=== PATIENT | male | born 1965 | race Caucasian/White ===

== ENCOUNTER 2017-04-24 09:01 | Emergency (ER) | payer SELFPAY ==
[~2017-04-24] VITALS: Ht 177.8 cm; Wt 77.0 kg
[2017-04-24 09:01] VITALS: BP 95/57; PULSE 214; RESP 16; TEMP 98.2; O2SAT 98
[2017-04-24 09:08] VITALS: O2SAT 97
[2017-04-24] MEDS ORDERED: DILTIAZEM HCL 25 MG/5 ML VIAL IV PUSH PRN (09:15)
[2017-04-24] MEDS ORDERED: SODIUM CHLOR 0.9% 1000 ML INJ 1,000 ML IV ONE (09:15)
[2017-04-24] MEDS ORDERED: SODIUM CHLORIDE 0.9% FLUSH 10 ML FLUSH IVF PRN (09:15)
--- NOTE | 2017-04-24 09:23 | PD ---
HPI Chief Complaint: Cardiac Complaint Time Seen by Provider: 09:05 Travel History International Travel<30 days: No Contact w/Intl Traveler<30days: No Traveled to known affect area: No History of Present Illness HPI 52-year-old male presents to the emergency department by EMS for chest pain and tachycardia. He speaks almost exclusively Occitan so we had nurse Jam communicate with the patient. From what I can understand, his chest pain started about 1 hour ago and is located in the center of his chest rated 8/10 without radiation. He has some accompanying shortness of breath with increased pain with breathing. EMS attempted vagal maneuvers, gave him 6 and 12 mg of adenosine, and also 20 mg Cardizem without change. This was his first episode. He denies any medical history. He is from [facility]. [facility] Past Medical History Medical History: Denies Significant Hx Past Surgical History Surgical History: No Previous Surgery Social History Alcohol Use: No Tobacco Use: No Substance Use: No Allergies-Medications (Allergen,Severity, Reaction): Coded Allergies: No Known Allergies (Unverified , 04/24/17) Reported Meds & Prescriptions Reported Meds & Active Scripts Active No Active Prescriptions or Reported Medications Review of Systems ROS Limitations: Language Barrier (Communicated with assistance of Jam) Except as stated in HPI: all other systems reviewed are Neg Cardiovascular: Positive: Chest Pain or Discomfort, Palpitations Respiratory: Positive: Shortness of Breath, Pleuritic Pain Physical Exam Narrative 52-year-old male. GENERAL: Well-developed well-nourished in mild distress SKIN: Focused skin assessment warm/dry. HEAD: Atraumatic. Normocephalic. EYES: Pupils equal and round. No scleral icterus. No injection or drainage. ENT: No nasal bleeding or discharge. Mucous membranes pink and moist. NECK: Trachea midline. No JVD. CARDIOVASCULAR: Tachycardic 200 BPM before conversion. No murmur appreciated. RESPIRATORY: No accessory muscle use. Clear to auscultation. Breath sounds remained equal and clear bilaterally GASTROINTESTINAL: Abdomen soft, non-tender, nondistended. Hepatic and splenic margins not palpable. MUSCULOSKELETAL: No obvious deformities. No clubbing. No cyanosis. No edema. NEUROLOGICAL: Awake and alert. No obvious cranial nerve deficits. Motor grossly within normal limits. Normal speech. PSYCHIATRIC: Appropriate mood and affect; insight and judgment normal. Data Data Last Documented VS Vital Signs Date Time Temp Pulse Resp B/P (MAP) Pulse Ox O2 Delivery O2 Flow Rate FiO2 04/24/17 12:38 04/24/17 11:06 96 95 94 04/24/17 10:00 16 97 Nasal Cannula 2.00 04/24/17 09:01 98.2 Orders Orders Basic Metabolic Panel (Bmp) (04/24/17 09:05) Ckmb (Isoenzyme) Profile (04/24/17 09:05) Complete Blood Count With Diff (04/24/17 09:05) Magnesium (Mg) (04/24/17 09:05) Prothrombin Time / Inr (Pt) (04/24/17 09:05) Act Partial Throm Time (Ptt) (04/24/17 09:05) Troponin I (04/24/17 09:05) Chest, Single Ap (04/24/17 09:05) Ecg Monitoring (04/24/17 09:05) Bilateral Bp Monitoring (04/24/17 09:05) Iv Access Insert/Monitor (04/24/17 09:05) Oximetry (04/24/17 09:05) Oxygen Administration (04/24/17 09:05) Sodium Chloride 0.9% Flush (Ns Flush) (04/24/17 09:15) Sodium Chlor 0.9% 1000 Ml Inj (Ns 1000 M (04/24/17 09:15) Diltiazem Inj (Cardizem Inj) (04/24/17 09:15) Orthostatic Vital Signs (04/24/17 10:00) CKMB (04/24/17 09:10) CKMB% (04/24/17 09:10) Electrocardiogram (04/24/17 ) Electrocardiogram (04/24/17 ) Labs Laboratory Tests Test 04/24/17 09:10 White Blood Count 8.1 TH/MM3 Red Blood Count 5.21 MIL/MM3 Hemoglobin 15.3 GM/DL Hematocrit 45.2 % Mean Corpuscular Volume 86.6 FL Mean Corpuscular Hemoglobin 29.3 PG Mean Corpuscular Hemoglobin Concent 33.9 % Red Cell Distribution Width 13.2 % Platelet Count 305 TH/MM3 Mean Platelet Volume 8.1 FL Neutrophils (%) (Auto) 58.0 % Lymphocytes (%) (Auto) 34.5 % Monocytes (%) (Auto) 5.4 % Eosinophils (%) (Auto) 1.3 % Basophils (%) (Auto) 0.8 % Neutrophils # (Auto) 4.7 TH/MM3 Lymphocytes # (Auto) 2.8 TH/MM3 Monocytes # (Auto) 0.4 TH/MM3 Eosinophils # (Auto) 0.1 TH/MM3 Basophils # (Auto) 0.1 TH/MM3 CBC Comment DIFF FINAL Differential Comment Prothrombin Time 10.7 SEC Prothromb Time International Ratio 1.0 RATIO Activated Partial Thromboplast Time 27.8 SEC Blood Urea Nitrogen 12 MG/DL Creatinine 1.38 MG/DL Random Glucose 118 MG/DL Calcium Level 8.3 MG/DL Magnesium Level 2.0 MG/DL Sodium Level 139 MEQ/L Potassium Level 3.9 MEQ/L Chloride Level 110 MEQ/L Carbon Dioxide Level 20.8 MEQ/L Anion Gap 8 MEQ/L Estimat Glomerular Filtration Rate 54 ML/MIN Total Creatine Kinase 202 U/L Creatine Kinase MB 2.1 NG/ML Troponin I 0.04 NG/ML MDM Medical Decision Making Medical Screen Exam Complete: Yes Emergency Medical Condition: Yes Differential Diagnosis Supraventricular tachycardia versus sinus tachycardia versus dehydration versus acute CA Narrative Course 52-year-old male presents to the emergency department by EMS for chest pain and tachycardia. He speaks almost exclusively Occitan so we had nurse Jam communicate with the patient. From what I can understand, his chest pain started about 1 hour ago and is located in the center of his chest rated 8/10 without radiation. He has some accompanying shortness of breath with increased pain with breathing. He denies any medical history. He is from [facility]. He apparently lives with his brother but he also does not speak Bengali. EKG Demonstrated PSVT at heart rate of 210. Apparently rescue attempted vagal maneuvers, gave him 6 mg and 12 mg of adenosine, then 20 mg of Cardizem without changes in his EKG or pain. We gave him a dose of 0.35 mg/kg Cardizem and he converted within a couple of minutes to a heart rate of 100. A second 12-lead indicated sinus rhythm without ischemic change and patient's chest pain was significantly decreased. He received 1 L normal saline IV and continued to improve.. Labs stable. Troponin neg, otherwise stable. Imaging- chest x-ray shows cardiomegaly without acute process Once converted, his heart rate remained below 100 and he was asymptomatic. Again, Jam assisted me with communicating with the patient and we advised patient to follow up with a conveyor attendant and primary care physician physician. Patient understood our instructions. Diagnosis Primary Impression: Paroxysmal SVT (supraventricular tachycardia) Referrals: [facility] [employer] Patient Instructions: Atrial Tachycardia (ED), General Instructions Additional Instructions: It is imperative that you follow-up with a primary care physician and conveyor attendant for evaluation of her condition. Scripts No Active Prescriptions or Reported Meds Disposition: 01 DISCHARGE HOME Condition: Stable Kassandra Casas Apr 24, 2017 09:23
--- NOTE | 2017-04-24 09:29 | PD ---
Physical Exam Date Seen by Provider: Apr 24, 2017 Narrative Patient presented to us by [facility] in SVT. He had been treated by [facility] initially with edematous and 6 mg followed by 12 mg. He was then given Cardizem 20 mg. None of this had any effect on his SVT. Data Data Last Documented VS Vital Signs Date Time Temp Pulse Resp B/P (MAP) Pulse Ox O2 Delivery O2 Flow Rate FiO2 04/24/17 09:08 97 Nasal Cannula 2.00 04/24/17 09:08 222 17 04/24/17 09:01 98.2 95/57 (70) Orders Orders Basic Metabolic Panel (Bmp) (04/24/17 09:05) Ckmb (Isoenzyme) Profile (04/24/17 09:05) Complete Blood Count With Diff (04/24/17 09:05) Magnesium (Mg) (04/24/17 09:05) Prothrombin Time / Inr (Pt) (04/24/17 09:05) Act Partial Throm Time (Ptt) (04/24/17 09:05) Troponin I (04/24/17 09:05) Chest, Single Ap (04/24/17 09:05) Ecg Monitoring (04/24/17 09:05) Bilateral Bp Monitoring (04/24/17 09:05) Iv Access Insert/Monitor (04/24/17 09:05) Oximetry (04/24/17 09:05) Oxygen Administration (04/24/17 09:05) Sodium Chloride 0.9% Flush (Ns Flush) (04/24/17 09:15) Sodium Chlor 0.9% 1000 Ml Inj (Ns 1000 M (04/24/17 09:15) Diltiazem Inj (Cardizem Inj) (04/24/17 09:15) [facility] Supervised Visit with REJI: Yes Interpretation(s) EKG shows PSVT with a rate of about 200. Repeat EKG shows a normal sinus rhythm with no acute ischemic change. Differential Diagnosis Differential diagnosis of tachycardia includes but is not limited to PSVT, atrial fibrillation with a rapid ventricular response, sinus tachycardia (due to hypovolemia, anemia, thyrotoxicosis, PE) Narrative Course Patient presented in SVT. He was given Cardizem, 0.35 mg/kg. He subsequently converted to a sinus rhythm. I, Dr. Farias, have reviewed the advance practice practitioner's documentation and am in agreement, met with the patient face to face, made the diagnosis, and the medical decision making was done by me. Critical Care Narrative Aggregate critical care time was 10 minutes. Time to perform other separately billable procedures was not included in the critical care time. My time did not include minutes spent treating any other patients simultaneously or on activities that did not directly contribute to the patient's treatment. The services I provided to this patient were to treat and/or prevent clinically significant deterioration due to tachycardia I provided critical care services requiring my management, as noted below: Chart data review, documentation time, medication orders and management, vital sign assessments/reviewing monitor data, ordering and reviewing lab tests, ordering and interpreting/reviewing x-rays and diagnostic studies, care of the patient and discussion of the patient with the admitting physicians Scripts No Active Prescriptions or Reported Meds Tayla Farias MD Apr 24, 2017 09:28
[2017-04-24 09:44] LABS: AUTOMATED NEUTROPHIL # 4.7 TH/MM3 (1.8-7.7); BASOPHIL # 0.1 TH/MM3 (0-0.2); BASOPHIL % 0.8 % (0.0-2.0); EOSINOPHIL # 0.1 TH/MM3 (0-0.4); EOSINOPHIL % 1.3 % (0.0-4.0); HEMATOCRIT 45.2 % (39.0-51.0); HEMO FLAGS DIFF FINAL; LYMPH % 34.5 % (9.0-44.0); LYMPHOCYTE # 2.8 TH/MM3 (1.0-4.8); MEAN CELL VOLUME 86.6 FL (80.0-100.0); MEAN CORPUSCULAR HEMOGLOBIN 29.3 PG (27.0-34.0); MEAN CORPUSCULAR HGB CONC 33.9 % (32.0-36.0); MONO % 5.4 % (0.0-8.0); PLATELET COUNT 305 TH/MM3 (150-450); RED BLOOD COUNT 5.21 MIL/MM3 (4.50-5.90); RED CELL DISTRIBUTION WIDTH 13.2 % (11.6-17.2); WHITE BLOOD COUNT 8.1 TH/MM3 (4.0-11.0)
--- NOTE | 2017-04-24 09:46 | RADRPT ---
EXAM DATE/TIME: 04/24/2017 09:30 [place] COMPARISON: No previous studies available for comparison. INDICATIONS : Chest pain. MEDICAL HISTORY : None. SURGICAL HISTORY : None. ENCOUNTER: Initial ACUITY: 1 day PAIN SCORE: 6/10 LOCATION: Bilateral chest FINDINGS: The cardiac silhouette is enlarged in transverse diameter. The lungs are free of acute parenchymal op acity. No effusions are identified. Osseous structures are intact. CONCLUSION: Cardiomegaly. No acute cardiopulmonary disease. Pratik Diaz MD on April 24, 2017 at 9:44 Board Certified Radiologist. This report was verified electronically.
[2017-04-24 09:51] LABS: APTT (PATIENT) 27.8 SEC (24.3-30.1); PROTHROMBIN TIME - PATIENT 10.7 SEC (9.8-11.6)
[2017-04-24 10:00] VITALS: BP 93/61; PULSE 94; RESP 16; O2SAT 97
[2017-04-24 10:02] LABS: ANION GAP 8 MEQ/L (5-15); BICARBONATE 20.8 MEQ/L (21.0-32.0); BLOOD UREA NITROGEN 12 MG/DL (7-18); CHLORIDE 110 MEQ/L (98-107); GLOMERULAR FILTRATION RATE 54 ML/MIN (>89); POTASSIUM 3.9 MEQ/L (3.5-5.1); SODIUM (NA) 139 MEQ/L (136-145)
[2017-04-24 10:05] LABS: CREATINE KINASE 202 U/L (39-308)
[2017-04-24 10:20] LABS: CKMB 2.1 NG/ML (0.5-3.6)
[2017-04-24 11:06] VITALS: BP_SYST 101; BP_SYST 105; BP_SYST 98; BP_DIAS 61; BP_DIAS 65; BP_DIAS 67
--- NOTE | 2017-04-25 08:07 | EKG ---
Date Performed: 04/24/2017 Time Performed: 09:01:03 PTAGE: 52 years EKG: SUPRAVENTRICULAR TACHYCARDIA POSSIBLE INFERIOR MYOCARDIAL INFARCTION ST DEPRESSION, CONSIDE R SUBENDOCARDIAL INJURY ABNORMAL ECG NO PREVIOUS TRACING DOCTOR: Chiquita Yu Interpretating Date/Time 04/25/2017 08:05:40
--- NOTE | 2017-04-25 08:07 | EKG ---
Date Performed: 04/24/2017 Time Performed: 09:18:05 PTAGE: 52 years EKG: Sinus rhythm PROBABLE INFERIOR MYOCARDIAL INFARCTION ABNORMAL ECG Since PREVIOUS TRACING , no longer tachycardic PREVIOUS TRACIN04/24/2017 09.01 DOCTOR: Chiquita Yu Interpretating Date/Time 04/25/2017 08:04:44
== END 2017-04-24 12:44 | disposition home or self-care (01) ==
LOC: NEPC 09:01
DX: I47.1 Supraventricular tachycardia (principal)
CPT/HCPCS: 71010; 80048; 82550; 82552; 83735; 84484; 85025; 85610; 85730; 93005; 96361; 96374; 99284; J7030